=== PATIENT | female | born 1985 ===

== ENCOUNTER 2017-07-04 12:00 | Inpatient (IN) | payer OTHER ==
[~2017-07-04] VITALS: Ht 154.9 cm; Wt 64.0 kg
[2017-07-31] MEDS ORDERED: PRENATABS RX T1 EACH PO (06:10)
== END 2017-08-02 13:36 | disposition home or self-care (01) | DRG 775 ==
LOC: LDR 07-29 12:00 → SURG-SUITE 07-31 12:05
PROC: 0KQM0ZZ Repair Perineum Muscle, Open Approach (ICD-10-PCS; principal; 2017-07-31)
PROC: 3E033VJ Introduction of Other Hormone into Peripheral Vein, Percutaneous Approach (ICD-10-PCS; 2017-07-31)
PROC: 10E0XZZ Delivery of Products of Conception, External Approach (ICD-10-PCS; 2017-07-31)
PROC: 4A1HXCZ Monitoring of Products of Conception, Cardiac Rate, External Approach (ICD-10-PCS; 2017-07-31)
DX: O70.1 Second degree perineal laceration during delivery (principal); Z37.0 Single live birth; Z3A.40 40 weeks gestation of pregnancy; O48.0 Post-term pregnancy

== ENCOUNTER 2017-07-25 10:51 | Outpatient (CLI) | payer OTHER | END 2017-07-25 11:35 | disposition home or self-care (01) | LOC: NST 10:51 | DX: Z34.83 Encounter for supervision of other normal pregnancy, third trimester (principal) ==

== ENCOUNTER 2017-07-29 10:32 | Outpatient (CLI) | payer OTHER | END 2017-07-29 11:53 | disposition home or self-care (01) | LOC: NST 10:32 | DX: Z34.83 Encounter for supervision of other normal pregnancy, third trimester (principal) ==